=== PATIENT | male | born 1940 | race African-American/Black ===

== ENCOUNTER 2019-04-16 19:41 | Emergency (ER) | payer OTHER, MEDICAID ==
[~2019-04-16] VITALS: Ht 165.1 cm; Wt 59.0 kg
--- NOTE | 2019-04-16 19:48 | NUR ---
PT CAME TO ER VIA RA102 FOR SHORTNESS OF BREATH, POSSIBLE ASPIRATION, AND COUGHING OF BLOOD. PATIENT STATES THAT HE HAD "ATE POTATOES AND IT WENT DOWN THE WRONG PIPE". PATIENT HAS CRACKLES HEARD UPON AUSCULTATION BILATERALLY ON BOTH LOBES, CAN BE HEARD MORE PROMINENTLY ON THE RIGHT. AAOX4. NO SOB. 100% 02 ON ROOM AIR. SUCTION READY AT BEDSIDE. CONNECTED TO MONITOR.
[2019-04-16] MEDS ORDERED: ONDANSETRON HCL/PF - ER 4 MG/2 ML VIAL IV ONE (20:00)
[2019-04-16 20:17] LABS: BASOPHILS % (AUTO) 0.8 % (0.0-2.0); EOSINOPHILS % (AUTO) 1.5 % (0.0-6.0); HEMATOCRIT 38 % (39-51); HEMOGLOBIN 11.9 g/dL (13.5-17.5); LYMPHOCYTES # (AUTO) 1.4 /CMM (0.8-4.8); LYMPHOCYTES % (AUTO) 21.8 % (20.0-44.0); MEAN CORPUSCULAR HGB CONC 32 g/dl (31.0-36.0); MEAN CORPUSCULAR VOLUME 89 fL (80-96); MONOCYTES # (AUTO) 0.5 /CMM (0.1-1.30); MONOCYTES % (AUTO) 8.5 % (2.0-12.0); NEUTROPHILS # (AUTO) 4.2 /CMM (1.8-8.9); NEUTROPHILS % (AUTO) 67.4 % (43.0-81.0); PLATELET COUNT (AUTO) 176 /CMM (150-450); RED BLOOD CELL COUNT(AUTO) 4.21 MIL/uL (4.5-6.0); WHITE BLOOD COUNT (AUTO) 6.2 K/uL (4.3-11.0)
--- NOTE | 2019-04-16 20:21 | NUR ---
BLOOD DRAWN AND SENT TO LAB
[2019-04-16 20:29] LABS: CALCIUM, SERUM 9.4 mg/dL (8.5-10.1); CARBON DIOXIDE 28 mmol/L (21-32); CHLORIDE 100 mmol/L (98-107); CREATININE 0.9 mg/dL (0.6-1.3); GLUCOSE 107 mg/dL (74-106); POTASSIUM 3.6 mmol/L (3.5-5.1); SODIUM SERUM 132 mmol/L (136-145); UREA NITROGEN, BLOOD 11 mg/dL (7-18)
[2019-04-16] MEDS ORDERED: LIDOCAINE 2% JEL UROJET 10 ML MM ONE ×2 (20:34→23:00)
[2019-04-16 20:35] LABS: ALANINE AMINOTRANSFERASE 15 U/L (12-78); ALBUMIN 3.1 g/dL (3.4-5.0); ALKALINE PHOSPHATASE 83 U/L (46-116); ASPARTATE AMINOTRANSFERASE 27 U/L (15-37); BILIRUBIN,DIRECT 0.1 mg/dL (0.0-0.2); BILIRUBIN,TOTAL 0.2 mg/dL (0.2-1.0)
--- NOTE | 2019-04-16 20:41 | NUR ---
OLD CARLOS REMOVED.
--- NOTE | 2019-04-16 20:45 | NUR ---
URINE COLLECTED AND SENT TO LAB
--- NOTE | 2019-04-16 20:45 | NUR ---
NEW 16 FR CARLOS CHANGED FOR PATIENT.
--- NOTE | 2019-04-16 20:50 | NUR ---
CARLOS CATH WAS NOT ADVANCING FOR PT'S PRIMARY NURSE. UROJET AND 16F COUDE CARLOS USED. DARK REDISH BROWN URINE OUTPUT NOTED. SM CLOT NOTED
[2019-04-16] MEDS ORDERED: ONDANSETRON HCL/PF 4 MG/2 ML VIAL ONE (20:52)
--- NOTE | 2019-04-16 21:02 | NUR ---
SPOKE WITH PATIENT'S SON, ALEJANDRA. CAN BE REACHED THROUGH [phone]
--- NOTE | 2019-04-16 21:09 | NUR ---
BEDPAN GIVEN TO PATIENT.
[2019-04-16 21:12] LABS: APPEARANCE,URINE Cloudy (CLEAR); BILIRUBIN,URINE LARGE (NEGATIVE); BLOOD, URINE Large Ery/uL (NEGATIVE); COLOR,URINE Brown (YELLOW); KETONES,URINE 15 (NEGATIVE); LEUKOCYTE ESTERASE ,URINE Large (NEGATIVE); NITRITE, URINE Positive (NEGATIVE); PH,URINE 5.5 (5.0-8.0); PROTEIN,URINE >=300 mg/dl (NEGATIVE); UGLUCOSE Negative (NEGATIVE)
--- NOTE | 2019-04-16 21:19 | NUR ---
REMOVED BED ACEVEDO, WATERY DIARRHEA, LIGHT BROWN.
[2019-04-16 21:25] LABS: RBC,URINE TOO NUMEROUS TO COUN /HPF (0-2)
[2019-04-16 21:26] LABS: BACTERIA,URINE 2+ /HPF (None Seen); SQUAMOUS EPITHELIAL CELL,UR Few /HPF (None Seen)
--- NOTE | 2019-04-16 21:35 | NUR ---
PATIENT SENT TO CT.
[2019-04-16] MEDS ORDERED: PIPERACILLIN /TAZOBACTAM 3.375 G VIAL IV ONE (21:59)
[2019-04-16] MEDS ORDERED: PIPERACILLIN /TAZOBACTAM 3.375 G in IV D5W 50 ML IV ONE (22:00)
[2019-04-16] MEDS ORDERED: IV NS 0.9% 1,000 ML BAG IV ONE (22:00)
[2019-04-16] MEDS ORDERED: METO-295 PO (22:19)
[2019-04-16] MEDS ORDERED: ONDA4TAB5 PO (22:19)
[2019-04-16] MEDS ORDERED: ROPI0.252 PO (22:19)
[2019-04-16] MEDS ORDERED: MYLANTA PO (22:19)
[2019-04-16] MEDS ORDERED: ARIP5TAB10 PO (22:19)
[2019-04-16] MEDS ORDERED: MILK OF MAGNESIA PO (22:19)
[2019-04-16] MEDS ORDERED: NA P133E RC (22:19)
[2019-04-16] MEDS ORDERED: SERT50TA PO (22:19)
[2019-04-16] MEDS ORDERED: TYL2T PO (22:19)
[2019-04-16] MEDS ORDERED: METR500T PO (22:19)
[2019-04-16] MEDS ORDERED: DULCOLAX PR (22:19)
[2019-04-16] MEDS ORDERED: DONE10TA11 PO (22:19)
[2019-04-16] MEDS ORDERED: SUCR1TAB31 PO (22:19)
[2019-04-16] MEDS ORDERED: MAGN400T8 PO (22:19)
[2019-04-16] MEDS ORDERED: CALC-494 PO (22:19)
[2019-04-16] MEDS ORDERED: TRAZ-182 PO (22:19)
[2019-04-16] MEDS ORDERED: OLAN5TAB6 PO (22:19)
[2019-04-16] MEDS ORDERED: LORA-259 PO (22:19)
[2019-04-16] MEDS ORDERED: LISI-607 PO (22:19)
[2019-04-16] MEDS ORDERED: ALLO100T PO (22:19)
[2019-04-16] MEDS ORDERED: METO25TA6 PO (22:19)
--- NOTE | 2019-04-16 22:45 | NUR ---
PT'S DIET NOTED IN PAPERWORK FROM THE FACILITY IS PUREE SHRUTHI
--- NOTE | 2019-04-16 22:47 | NUR ---
SPOKE W/ JAZZ DESK LIEUTENANT REGARDING ADMITTANCE STATUS OF PATIENT.
--- NOTE | 2019-04-16 22:56 | NUR ---
DR. ALVARADO SPEAKING TO [facility] VASCULAR SURGEON DR. BUSCH REGARDING PATIENT'S ADMISSION STATUS.
--- NOTE | 2019-04-16 22:56 | NUR ---
José Miguel raymond in ED - 04/16/[address] ALVARADO SPEAKING W/ DR. HOUGH, PROFESSOR OF [facility]OLOGETICS OF [facility].
--- NOTE | 2019-04-16 23:02 | NUR ---
PATIENT IS RETURNING TO [facility], JAZZ LAST PATTERN GRADER CALLING FOR TRANSPORT.
--- NOTE | 2019-04-16 23:04 | NUR ---
SPOKE TO PT'S , LISA, RE: UPDATE.
--- NOTE | 2019-04-16 23:41 | NUR ---
RECIEVED CALL FROM JAZZ RADIO MAINTAINER, PATIENT WILL BE GOING TO ROOM 23-A AT [facility], TRANSPORT TEAM IS [facility], ETA 40MINUTES.
--- NOTE | 2019-04-16 23:47 | NUR ---
PATIENT IS SLEEPING. EASILY AROUSABLE TO VERBAL AND TACTILE STIMULI. 02 SATURATION AT 99% ROOM AIR.
--- NOTE | 2019-04-17 00:03 | NUR ---
José Miguel ryamond in ED - 04/17/19 at 0014 by ABILIO REPORT GIVEN TO RICHELLE SAMUELS AT [facility] FOR KANIKA.
--- NOTE | 2019-04-17 00:03 | NUR ---
REPORT GIVEN TO IRCHELLE SAMUELS AT [facility] FOR [facility]A.
--- NOTE | 2019-04-17 00:15 | NUR ---
REPORT GIVEN TO [facility] FOR TRANSFER
[2019-04-17 00:17] VITALS: BP 123/82
[2019-04-22] MEDS ORDERED: HYDR-3972 PO (10:20)
[2019-04-22] MEDS ORDERED: HEPA50008 SQ (10:20)
[2019-04-22] MEDS ORDERED: CEFT1VIA15 IV (10:20)
[2019-04-22] MEDS ORDERED: METH4TAB3 PO (10:20)
== END 2019-04-17 00:17 ==
LOC: ER 19:42 → EDBD 19:42 → ER 04-17 00:17
DX: N30.00 Acute cystitis without hematuria (principal); E86.0 Dehydration; D64.9 Anemia, unspecified; I10 Essential (primary) hypertension; I48.91 Unspecified atrial fibrillation; J44.9 Chronic obstructive pulmonary disease, unspecified; N40.0 Benign prostatic hyperplasia without lower urinary tract symptoms; F32.9 Major depressive disorder, single episode, unspecified; F41.9 Anxiety disorder, unspecified; Z86.718 Personal history of other venous thrombosis and embolism
CPT/HCPCS: 36415; 51702; 71045; 74176; 80048; 80076; 81001; 83605; 84145; 84484; 85025; 85730; 87040 ×2; 87077; 87086; 87186; 93005; 96365; 96375; 99284; J2405; J2543; J3490; J7030; J7060; 81000-TC

== ENCOUNTER 2019-04-18 19:13 | Inpatient (IN) | payer MEDICARE, MEDICAID ==
[~2019-04-18] VITALS: Ht 172.7 cm; Wt 66.7 kg
[~2019-04-18 19:13] MED LIST: ALLO100T PO; ARIP5TAB10 PO; CALC-494 PO; DONE10TA11 PO; DULCOLAX PR; LISI-607 PO; LORA-259 PO; MAGN400T8 PO; METO-295 PO; METO25TA6 PO; METR500T PO; MILK OF MAGNESIA PO; MYLANTA PO; NA P133E RC; OLAN5TAB6 PO; ONDA4TAB5 PO; ROPI0.252 PO; SERT50TA PO; SUCR1TAB31 PO; TRAZ-182 PO; TYL2T PO
--- NOTE | 2019-04-18 19:15 | NUR ---
"[id number] SNF FOR SOB/O2 DESATURATION. ON BREATHING TREATMENT NEUROSCIENCE DIRECTOR NA" pt awake, alert, pt on monitor, piv established, md at bedside for eval
[2019-04-18] MEDS ORDERED: methylPREDNISolone SOD SUCC 125 MG/2ML VIAL ONE (19:25)
[2019-04-18 19:27] LABS: BASOPHILS # (AUTO) 0.1 /CMM (0.0-0.2); BASOPHILS % (AUTO) 0.9 % (0.0-2.0); EOSINOPHILS % (AUTO) 1.6 % (0.0-6.0); HEMATOCRIT 36 % (39-51); HEMOGLOBIN 11.6 g/dL (13.5-17.5); LYMPHOCYTES # (AUTO) 1.7 /CMM (0.8-4.8); LYMPHOCYTES % (AUTO) 29.8 % (20.0-44.0); MEAN CORPUSCULAR HGB CONC 33 g/dl (31.0-36.0); MEAN CORPUSCULAR VOLUME 89 fL (80-96); MONOCYTES # (AUTO) 0.5 /CMM (0.1-1.30); NEUTROPHILS # (AUTO) 3.3 /CMM (1.8-8.9); NEUTROPHILS % (AUTO) 58.7 % (43.0-81.0); PLATELET COUNT (AUTO) 196 /CMM (150-450); RED BLOOD CELL COUNT(AUTO) 4.05 MIL/uL (4.5-6.0); WHITE BLOOD COUNT (AUTO) 5.7 K/uL (4.3-11.0)
[2019-04-18] MEDS ORDERED: IPRATROPIUM NEB FS 0.5 MG/2.5 ML AMPUL.NEB NEB ONE (19:30)
[2019-04-18] MEDS ORDERED: methylPREDNISolone SOD SUCC 125 MG/2ML VIAL IV ONE (19:30)
[2019-04-18] MEDS ORDERED: ALBUTEROL FS 2.5 MG/3 ML VIAL.NEB NEB ONE (19:30)
[2019-04-18] MEDS ORDERED: ALBUTEROL FS 2.5 MG/3 ML VIAL.NEB ONE (19:35)
[2019-04-18] MEDS ORDERED: IPRATROPIUM NEB FS 0.5 MG/2.5 ML AMPUL.NEB ONE (19:36)
[2019-04-18 19:54] LABS: CALCIUM, SERUM 8.9 mg/dL (8.5-10.1); CARBON DIOXIDE 29 mmol/L (21-32); CHLORIDE 100 mmol/L (98-107); CREATININE 0.8 mg/dL (0.6-1.3); GLUCOSE 123 mg/dL (74-106); POTASSIUM 3.6 mmol/L (3.5-5.1); SODIUM SERUM 132 mmol/L (136-145); UREA NITROGEN, BLOOD 7 mg/dL (7-18)
[2019-04-18 19:58] LABS: ALANINE AMINOTRANSFERASE 14 U/L (12-78); ALBUMIN 3.1 g/dL (3.4-5.0); ALKALINE PHOSPHATASE 78 U/L (46-116); ASPARTATE AMINOTRANSFERASE 29 U/L (15-37); BILIRUBIN,DIRECT 0.1 mg/dL (0.0-0.2); BILIRUBIN,TOTAL 0.2 mg/dL (0.2-1.0)
[2019-04-18] MEDS ORDERED: VANCOMYCIN 1 GM in IV D5W 250 ML IV ONE (20:00)
[2019-04-18] MEDS ORDERED: IV NS 0.9% 1,000 ML BAG IV ONE (20:00)
[2019-04-18] MEDS ORDERED: PIPERACILLIN /TAZOBACTAM 3.375 G in IV D5W 50 ML IV ONE (20:00)
[2019-04-18 20:28] LABS: APPEARANCE,URINE Clear (CLEAR); BILIRUBIN,URINE Negative (NEGATIVE); BLOOD, URINE Moderate Ery/uL (NEGATIVE); COLOR,URINE Yellow (YELLOW); KETONES,URINE Negative (NEGATIVE); LEUKOCYTE ESTERASE ,URINE Small (NEGATIVE); NITRITE, URINE Negative (NEGATIVE); PH,URINE 5.5 (5.0-8.0); PROTEIN,URINE Negative (NEGATIVE); UGLUCOSE Negative (NEGATIVE); UROBILINOGEN,URINE 0.2 EU/dL (0.2)
[2019-04-18] MEDS ORDERED: LORAZEPAM INJ 2 MG/ML VIAL ONE (20:44)
--- NOTE | 2019-04-18 20:54 | NUR ---
RECIEVED BED 309-1
[2019-04-18 20:57] LABS: BACTERIA,URINE Few /HPF (None Seen); SQUAMOUS EPITHELIAL CELL,UR Few /HPF (None Seen)
[2019-04-18] MEDS ORDERED: LORAZEPAM INJ 2 MG/ML VIAL IV ONE (21:00)
--- NOTE | 2019-04-18 21:45 | NUR ---
TELE/RN NOTES RECEIVED PT. FROM ER VIA RADHA. PT. IS AWAKE, ALERT AND ORIENTED X2. BREATHING EVEN AND UNLABORED ON 4LPM O2 VIA NC. NO SOB, RESPIRATORY DISTRESS OR COMPLAINTS OF PAIN NOTED AT THIS TIME. PT. WITH RIGHT FOREARM 20 GAUGE IV SALINE LOCK PRESENT, PATENT AND INTACT. PT. WITH LEFT AC 18 GAUGE IV SALINE LOCK PRESENT, PATENT AND INTACT. ORIENTED PT. TO ROOM. PLACED EXTERNAL TOOL AND DIE ASSEMBLER ON PT. CURRENT RHYTHM = AFIB HR 76. BED LOCKED AND IN LOWEST POSITION, SIDE RAILS UP X3, BED ALARM ON, CALL LIGHT WITHIN REACH, WILL CONTINUE TO MONITOR.
[2019-04-18 22:00] VITALS: BP 115/63
--- NOTE | 2019-04-18 22:00 | NUR ---
report given to merritt pena for karel pt transported to 3rd floor
[2019-04-18] MEDS ORDERED: Z GUARD REMEDY 2 OZ OINT TP PRN (23:30)
[2019-04-18] MEDS ORDERED: ACETAMINOPHEN 325 MG TABLET PO PRN (23:30)
[2019-04-18] MEDS ORDERED: ZOLPIDEM TARTRATE 5 MG TABLET PO PRN (23:30)
[2019-04-18] MEDS ORDERED: HYDROCODONE/APAP 5/325MG 1 EACH TABLET PO PRN (23:30)
[2019-04-18] MEDS ORDERED: MAGNESIUM HYDROXIDE 30 ML UDC PO PRN (23:30)
[2019-04-18] MEDS: ALBUTEROL FS 2.5 MG/0.5 ML VIAL.NEB NEB SCH (23:57)
[2019-04-18] MEDS: IPRATROPIUM NEB FS 0.5 MG/2.5 ML AMPUL.NEB NEB SCH (23:57)
[2019-04-19] VITALS: BP 112/63
[2019-04-19] MEDS ORDERED: PIPERACILLIN /TAZOBACTAM 3.375 G in IV D5W 50 ML IV ONE ×2 (02:00→02:30)
[2019-04-19] MEDS ORDERED: PIPERACILLIN /TAZOBACTAM 3.375 G VIAL IV ONE (02:19)
[2019-04-19] MEDS: IPRATROPIUM NEB FS 0.5 MG/2.5 ML AMPUL.NEB NEB SCH ×6 (02:31→23:24)
[2019-04-19] MEDS: ALBUTEROL FS 2.5 MG/0.5 ML VIAL.NEB NEB SCH ×6 (02:31→23:24)
[2019-04-19 04:00] VITALS: BP 110/66
[2019-04-19 06:54] LABS: BASOPHILS % (AUTO) 0.4 % (0.0-2.0); HEMATOCRIT 33 % (39-51); HEMOGLOBIN 10.7 g/dL (13.5-17.5); LYMPHOCYTES # (AUTO) 0.3 /CMM (0.8-4.8); LYMPHOCYTES % (AUTO) 8.3 % (20.0-44.0); MEAN CORPUSCULAR HGB CONC 33 g/dl (31.0-36.0); MEAN CORPUSCULAR VOLUME 88 fL (80-96); MONOCYTES # (AUTO) 0.1 /CMM (0.1-1.30); NEUTROPHILS # (AUTO) 3.5 /CMM (1.8-8.9); NEUTROPHILS % (AUTO) 88.3 % (43.0-81.0); PLATELET COUNT (AUTO) 168 /CMM (150-450); RED BLOOD CELL COUNT(AUTO) 3.73 MIL/uL (4.5-6.0)
--- NOTE | 2019-04-19 06:55 | NUR ---
TELE/RN NOTES PT. IS LYING IN BED RESTING. BREATHING EVEN AND UNLABORED ON 3LPM O2 VIA NC. NO SOB, RESPIRATORY DISTRESS OR COMPLAINTS OF PAIN NOTED AT THIS TIME. PT. WITH RIGHT FOREARM 20 GAUGE IV SALINE LOCK PRESENT, PATENT AND INTACT. PT. WITH LEFT AC 18 GAUGE IV SALINE LOCK PRESENT, PATENT AND INTACT. ORIENTED PT. TO ROOM. PT. WITH EXTERNAL ECDIS N NAVIGATION OPERATOR PRESENT AND INTACT, PT. CURRENT RHYTHM = AFIB HR 58. ALL PT. NEEDS MET. BED LOCKED AND IN LOWEST POSITION, SIDE RAILS UP X3, BED ALARM ON, CALL LIGHT WITHIN REACH, WILL ENDORSE TO DAYSHIFT NURSE FOR CONTINUITY OF CARE.
[2019-04-19 06:56] LABS: CALCIUM, SERUM 8.3 mg/dL (8.5-10.1); CREATININE 0.7 mg/dL (0.6-1.3); PHOSPHORUS 3.2 mg/dL (2.5-4.9)
[2019-04-19 07:01] LABS: THYROID STIMULATING HORMONE 0.805 uIU/mL (0.358-3.74)
--- NOTE | 2019-04-19 07:20 | NUR ---
PHLEBOTOMIST ASSOCIATE NOTES PATIENT RESTING IN BED, RT AT BEDSIDE. SITTER ALSO AT BEDSIDE. PATIENT IN NO RESPIRATORY DISTRESS, NO C/O PAIN AT THIS TIME. PATIENT'S POWER PLANT ENGINEER ON READING AFIB AT 60S. SKIN WARM TO TOUCH. BOTH IV ACCESS SITES INTACT AND PATENT. BED ON LOWEST LOCKED POSITION, CALL LIGHT WITHIN REACH. WILL CONTINUE TO MONITOR.
[2019-04-19 07:26] LABS: MAGNESIUM 0.9 mg/dL (1.8-2.4)
[2019-04-19] MEDS ORDERED: FEE PK DOSING 1 MIN EA MC ONE (07:27)
[2019-04-19 08:00] VITALS: BP 105/60
[2019-04-19] MEDS: VANCOMYCIN 0.75 GM in IV D5W 250 ML IV SCH ×2 (08:27→20:38)
[2019-04-19] MEDS: PIPERACILLIN /TAZOBACTAM 3.375 G in IV D5W 100 ML IV SCH ×3 (08:27→23:42)
[2019-04-19] MEDS: methylPREDNISolone SOD SUCC 125 MG/2ML VIAL IV SCH ×3 (08:28→16:26)
[2019-04-19] MEDS ORDERED: FINA5TAB4 PO (09:06)
[2019-04-19] MEDS ORDERED: MAGN400O6 PO (09:06)
[2019-04-19] MEDS ORDERED: OLAN5TAB3 PO (09:06)
[2019-04-19] MEDS ORDERED: IPRA3AMP23 IH (09:06)
[2019-04-19] MEDS ORDERED: MAG355OR18 PO (09:06)
[2019-04-19] MEDS ORDERED: ENOX40DI SQ (09:06)
[2019-04-19] MEDS ORDERED: SENN8.8S12 PO (09:06)
[2019-04-19] MEDS ORDERED: ROPI0.252 PO (09:06)
[2019-04-19] MEDS ORDERED: BISA10SU11 RC (09:06)
[2019-04-19] MEDS ORDERED: TAMS-12 PO (09:06)
[2019-04-19] MEDS ORDERED: ASPI-992 PO (09:06)
[2019-04-19] MEDS ORDERED: FOLI5VIA2 PO (09:06)
[2019-04-19] MEDS ORDERED: SODIUM CHLORIDE PO (09:06)
[2019-04-19] MEDS ORDERED: DONE10TA11 PO (09:06)
[2019-04-19] MEDS ORDERED: PANT40TA2 PO (09:06)
[2019-04-19] MEDS: ONDANSETRON HCL/PF 4 MG/2 ML VIAL IVP PRN (09:40)
[2019-04-19] MEDS ORDERED: Magnesium 1GM/D5W 100ML PREMIX PIGGYBACK IV ONE ×2 (12:30)
[2019-04-19] MEDS: Magnesium 1GM/D5W 100ML PREMIX 100 ML IV SCH ×4 (12:37→15:45)
[2019-04-19 16:00] VITALS: BP 124/74
--- NOTE | 2019-04-19 17:20 | NUR ---
M/S RN NOTES PATIENT CONSTANTLY BURPING AND PUTS HIS FINGERS IN THE BACK OF HIS MOUTH. WHEN ASKED PATIENT WHY HE PUTS HIS FINGERS DOWN HIS THROAT HE STATES "I DON'T KNOW" PATIENT A/O X2. PROVIDE TEACHING, WILL CONTINUE TO MONITOR.
--- NOTE | 2019-04-19 18:35 | NUR ---
Spoke with patient, he resides at [facility] [phone]. He can ambulate with SBA, requires min-mod assist with adl's. Per SNF patient has a son King but he is self responsible. Patient plan to return to SNF when discharge. Addendum: 04/19/19 at 3329 by ESTHER KOCH RN Amended: Links added.
--- NOTE | 2019-04-19 18:48 | NUR ---
M/S RN NOTES PATIENT AWAKE, SITTER AT BEDSIDE. PATIENT'S FAMILY VISITED TODAY. PATIENT IN NO RESPIRATORY DISTRESS NOTED, NO C/O PAIN AT THIS TIME. IV ACCESS SITE ON THE RFA INTACT AND PATENT. SKIN WARM TO TOUCH. PATIENT'S NEEDS ATTENDED. BED ON LOWEST LOCKED POSITION, CALL LIGHT WITHIN REACH. WILL ENDORSE TO ONCOMING NURSE.
--- NOTE | 2019-04-19 19:10 | NUR ---
MS RN NOTE RECEIVED PT IN STABLE CONDITION A/O X2, NOTED WITH SITTER, NO SIGNS OF SOB OR DISTRESS, NO INDICATIONS OF PAIN OR N/V. IV IN RFA #[address] ALL CURRENT NEEDS ATTENDED TO. BED LOW, LOCKED, UPPER RAILS UP, AND CALL LIGHT WITHIN REACH. WILL CONT. TO MONITOR.
[2019-04-19 20:00] VITALS: BP 120/65
--- NOTE | 2019-04-19 21:45 | NUR ---
MS RN NOTE NOTIFIED KERZUMA OF PT PUTTING FINGERS DOWN THROAT AND INITIATING GAG REFLEX. BLEEDING NOTED. NEW ORDER FOR RESTRAINTS AND PSYCH EVAL. WILL CARRY OUT AND CONT. TO MONITOR PT.
--- NOTE | 2019-04-19 23:03 | NUR ---
MS RN NOTE NOTIFIED DR. LLOYD OF PT AGITATION. NEW ORDER FOR ATIVAN IV. WILL CARRY ORDER OUT AND CONT. TO MONITOR. PT.
[2019-04-19] MEDS: LORAZEPAM INJ 2 MG/ML VIAL IV PRN (23:20)
--- NOTE | 2019-04-19 23:20 | NUR ---
MS RN NOTE PT NOTED TO BE ANXIOUS, PRN ATIVAN 1 MG IV GIVEN. WILL CONT. TO MONITOR.
[2019-04-20] MEDS: IPRATROPIUM NEB FS 0.5 MG/2.5 ML AMPUL.NEB NEB SCH ×6 (03:27→22:46)
[2019-04-20] MEDS: ALBUTEROL FS 2.5 MG/0.5 ML VIAL.NEB NEB SCH ×6 (03:27→22:46)
[2019-04-20] MEDS: LORAZEPAM INJ 2 MG/ML VIAL IV PRN ×2 (04:38→09:17)
--- NOTE | 2019-04-20 04:38 | NUR ---
MS RN NOTE PT. AWAKE, AGITATED AND YELLING AT STAFF. PRN ATIVAN 1MG IV GIVEN. WILL CONT. TO MONITOR.
--- NOTE | 2019-04-20 06:03 | NUR ---
MS RN NOTE PT REMAINS IN STABLE CONDITION A/O X2, NOTED WITH SOFT JACOB WRIST RESTRAINTS, NO SIGNS OF SOB OR DISTRESS, NO INDICATIONS OF PAIN OR N/V. IV IN BOBBI #[address] ALL CURRENT NEEDS ATTENDED TO. BED LOW, LOCKED, UPPER RAILS UP, AND CALL LIGHT WITHIN REACH. WILL CONT. TO MONITOR AND ENDORSE TO NEXT SHIFT FOR KANIKA.
[2019-04-20 07:38] LABS: CALCIUM, SERUM 8.9 mg/dL (8.5-10.1); CREATININE 0.8 mg/dL (0.6-1.3); POTASSIUM 4.1 mmol/L (3.5-5.1)
[2019-04-20 07:52] VITALS: BP 142/87
[2019-04-20 08:00] VITALS: BP 142/87
--- NOTE | 2019-04-20 08:00 | NUR ---
rn notes RECEIVED PATIENT IN THE ROOM A/O X1/2ON O2 2L NC. PATIENT HAS NO ACUTE RESPIRATORY DISTRESS, UNLABORED BREATHING. V/S STABLE PATIENT WAS REFUSED PAIN. PATIENT ON RESTRAIN BECAUSE OF TRYING TO PUT HAND IN THE DEEP THTOT AND STARTED TO GAG. PATIENT STATE " SOMETHING GET STOCK MY THROAT". BUT PATIENT EAT AND DRINK NO OBSTRUCTION. TOLERATED BREAKFAST 100 %. AND KEEP ASKING FOOD. KITCHEN AWARE OF SEND EXTRA FOOD. ADMINISTERED SCHEDULED MEDICATION CRUSHED AND MIXED WITH THE APPLE SAUCE. ASSIST PATIENT TURN AND REPOSTION Q 2 HR. INFUSING ZOSYN 25ML/HR ON RIGHT WRIST, ALSO INFUSING VANCOMYCIN 250 MG/ML ON RIGHT UA INTACT, NEEDS ATTENDED AND ANTICIPATE. PATIENT INCOMNNTINE NT USING DIAPER. SAFETY PRECAUTION MAINTAINED ALL THE TIME.
[2019-04-20] MEDS: PIPERACILLIN /TAZOBACTAM 3.375 G in IV D5W 100 ML IV SCH ×2 (08:26→16:42)
[2019-04-20] MEDS: methylPREDNISolone SOD SUCC 125 MG/2ML VIAL IV SCH ×3 (08:27→16:45)
--- NOTE | 2019-04-20 09:17 | NUR ---
RN NOTES ADMINISTERED ATIVAN 1 MG /ML IV PUSH FOR ANXIETY, YELLING, BP-142/87, P-60. PATIENT ON WRIST RESTRAIN, FOR FALL PRECAUTION , PATIENT TRYING TO GAG SELF PUTTING FINGER TO THE DEEP TROTH.
[2019-04-20] MEDS: VANCOMYCIN 0.75 GM in IV D5W 250 ML IV SCH (09:20)
[2019-04-20] MEDS ORDERED: OLANZAPINE 5 MG TABLET PO PRN (10:00)
--- NOTE | 2019-04-20 11:00 | NUR ---
RN NOTES PATIENT RESTING IN THE BED , MEDICATION WERE ADMINISTERED APRYL ANXIETY EFFECTIVE. CONTINUED MONITORING.
[2019-04-20] MEDS: TAMSULOSIN 0.4 MG CAP.SR.24H PO SCH (13:46)
[2019-04-20] MEDS: SERTRALINE HCL 50 MG TABLET PO SCH (13:46)
[2019-04-20] MEDS: ARIPIPRAZOLE 5 MG TABLET PO SCH (13:46)
[2019-04-20] MEDS: ASPIRIN 325 MG TABLET PO SCH (13:46)
[2019-04-20] MEDS: HEPARIN SODIUM, PORCINE 5000 UNITS/1 ML VIAL SQ SCH ×2 (13:47→21:21)
[2019-04-20] MEDS: PANTOPRAZOLE 40 MG TABLET.DR PO SCH (13:52)
[2019-04-20] MEDS: METOPROLOL TARTRATE 25 MG TABLET PO SCH (13:53)
[2019-04-20 16:00] VITALS: BP 132/83
[2019-04-20] MEDS: SODIUM CHLORIDE 1000 MG TABLET PO SCH (16:45)
--- NOTE | 2019-04-20 18:30 | NUR ---
RN NOTES PATIENT STABLE TOLERATED FOOD 100%, V/S STABLE, ADMINISTERED SCHEDULED MEDICATION. INFUSING RIGHT WRIST ZOSYN 25/ML HR ON EXTENDED DOSE. ASSIST TURN AND REPOSTION Q 2 HR. CHECKED CIRCULATION ON BILATERAL HANDS, CAPILLARY RETURN LESS THAN 3 SEC. CALL LIGHT WITHIN TO REACH, PATIENT EAT DINNER WITH HELP OF INSPECTOR GLASS OR MIRROR, NO ASPIRATION PRECAUTION, CALL LIGHT WITHIN TO REACH. ENDORSED ONCOMING NURSE FOLLOW PLAN OF CARE.
--- NOTE | 2019-04-20 19:30 | NUR ---
ms sherly initial notes received report from am nurse Soumya, and checked the pt , he's awake and watching TV at time. heplock patent and intact. no signs of any acute distress noted. pt still with soft wrist restrain, skin warm and pulse present. kept him warm and comfortable at all times. bed in low and lock in position with side rails x2 up . will continue monitoring.
[2019-04-20 20:00] VITALS: BP 113/71
[2019-04-20] MEDS ORDERED: ENOXAPARIN SODIUM 40 MG/0.4 ML DISP.SYRIN SQ SCH (21:00)
[2019-04-20] MEDS: VANCOMYCIN 1 GM in IV D5W 250 ML IV SCH (21:11)
[2019-04-20] MEDS: ropiniROLE 0.5 MG TABLET PO SCH (21:19)
[2019-04-20] MEDS: TRAZODONE 50 MG TABLET PO SCH (21:19)
[2019-04-20] MEDS: FINASTERIDE (5 MG) 5 MG TABLET PO SCH (21:19)
[2019-04-20] MEDS: CALCIUM CARBONATE 500 MG TAB.CHEW PO SCH (21:19)
[2019-04-20] MEDS: DONEPEZIL 5 MG TABLET PO SCH (21:19)
--- NOTE | 2019-04-21 | NUR ---
ms sherly notes pt sleeping comfortably in bed with no signs of any acute distress noted. all due meds given and stable judy the night. still no soft restrain at this time. pt calmed and quiet after snacks given and bed bath done. kept him warm and comfortable at all times. bed alarm set for safety. endorse to am nurse for continuity of care. place call light at reach.
[2019-04-21] MEDS: PIPERACILLIN /TAZOBACTAM 3.375 G in IV D5W 100 ML IV SCH ×2 (00:15→08:09)
[2019-04-21] MEDS: ALBUTEROL FS 2.5 MG/0.5 ML VIAL.NEB NEB SCH ×6 (04:21→22:35)
[2019-04-21] MEDS: IPRATROPIUM NEB FS 0.5 MG/2.5 ML AMPUL.NEB NEB SCH ×6 (04:21→22:35)
--- NOTE | 2019-04-21 07:29 | NUR ---
ms heart surgeon closing notes endorse to am nurse for continuity of care. pt remain sleeping.
--- NOTE | 2019-04-21 07:42 | NUR ---
MS RN NOTES PATIENT RECEIVED RESTING INSIDE ROOM. SLEEPING, AROUSABLE THROUGH VERBAL AND TACTILE STIMULI. NO ACUTE DISTRESS. NO C/O PAIN OR DISCOMFORT. PATIENT CALM AND RELAXED AT THIS TIME. SAFETY PRECAUTIONS IN PLACE. WILL CONTINUE TO MONITOR. BED LOCKED AND IN LOW POSITION. BILATERAL UPPER SIDE RAILS UP AND LOCKED. CALL LIGHT WITHIN EASY REACH
[2019-04-21 08:00] VITALS: BP 115/78
[2019-04-21] MEDS: ARIPIPRAZOLE 5 MG TABLET PO SCH (08:10)
[2019-04-21] MEDS: SODIUM CHLORIDE 1000 MG TABLET PO SCH ×2 (08:10→16:12)
[2019-04-21] MEDS: PANTOPRAZOLE 40 MG TABLET.DR PO SCH (08:11)
[2019-04-21] MEDS: METOPROLOL TARTRATE 25 MG TABLET PO SCH (08:11)
[2019-04-21] MEDS: TAMSULOSIN 0.4 MG CAP.SR.24H PO SCH (08:11)
[2019-04-21] MEDS: CALCIUM CARBONATE 500 MG TAB.CHEW PO SCH ×2 (08:11→20:49)
[2019-04-21] MEDS: ASPIRIN 325 MG TABLET PO SCH (08:11)
[2019-04-21] MEDS: methylPREDNISolone SOD SUCC 125 MG/2ML VIAL IV SCH ×2 (08:11→16:11)
[2019-04-21] MEDS: HEPARIN SODIUM, PORCINE 5000 UNITS/1 ML VIAL SQ SCH ×2 (08:12→20:54)
[2019-04-21] MEDS: SERTRALINE HCL 50 MG TABLET PO SCH (08:13)
[2019-04-21] MEDS: ALLOPURINOL 100 MG TABLET PO SCH (08:16)
[2019-04-21] MEDS: LISINOPRIL (5MG) 5 MG TABLET PO SCH (08:16)
[2019-04-21] MEDS: MAGNESIUM OXIDE 400 MG TABLET PO SCH (08:16)
[2019-04-21 08:49] LABS: CALCIUM, SERUM 9.6 mg/dL (8.5-10.1); CREATININE 0.8 mg/dL (0.6-1.3); POTASSIUM 4.2 mmol/L (3.5-5.1)
[2019-04-21] MEDS: VANCOMYCIN 1 GM in IV D5W 250 ML IV SCH (09:12)
[2019-04-21] MEDS: MAG HYDROX/AL HYDROX/SIMETH 30 ML UDC PO PRN (09:12)
[2019-04-21] MEDS ORDERED: methylPREDNISolone SOD SUCC 125 MG/2ML VIAL IV SCH (10:00)
--- NOTE | 2019-04-21 14:15 | NUR ---
MS RN NOTES MAGNESIUM LEVEL 1.3. PATIENT ON MAG OXIDE PO ROUTINE. PHARMACY AND DR CARRASCO AWARE. NO NEW ORDERS RECEIVED AT THIS TIME. WILL CONTINUE TO MONITOR
--- NOTE | 2019-04-21 14:32 | NUR ---
MS RN NOTES PATIENT ENCOURAGED TO AMBULATE BUT PATIENT DECLINED AND STATED, "I DONT FEEL LIKE IT RIGHT NOW". VERBALIZED HE JUST WANTS TO STAY ON BED. WILL CONTINUE TO MONITOR
[2019-04-21 16:00] VITALS: BP 118/59
--- NOTE | 2019-04-21 16:21 | NUR ---
MS RN NOTES PATIENT AGREED TO AMBULATE HALLWAY. ABLE TO UTILIZE FWW WHILE AMBULATING UNDER SUPERVISION. AMBULATES WITH STEADY GAIT. PATIENT AMBULATED AROUND THE UNIT X 1 THEN WENT BACK TO ROOM. NO ACUTE DISTRESS NOTED. WILL CONTINUE TO MONITOR
--- NOTE | 2019-04-21 18:39 | NUR ---
MS RN NOTES PATIENT RESTING INSIDE ROOM. A/O X 4. NO ACUTE DISTRESS. NO CHANGES IN LOC NOTED. NO ACUTE DISTRESS. DENIES ANY PAIN OR DISCOMFORT. PATIENT KEPT CLEAN, DRY AND COMFORTABLE. PROVIDED WITH CALM, SAFE, HAZARD-FREE ENVIRONMENT. WILL ENDORSE TO INCOMING SHIFT FOR KANIKA. BED LOCKED AND IN LOW POSITION. BILATERAL UPPER SDIE RAILS UP AND LOCKED. CALL LIGHT WITHIN EASY REACH
--- NOTE | 2019-04-21 19:18 | NUR ---
RN OPENING NOTES RECEIVED PATIENT IN BED AWAKE, RESTING. A/O X 4. FAMILY AT BED SIDE. RESPIRATIONS EVEN AND UNLABORED WITH EQUAL RISE AND FALL OF CHEST. IV SITES INTACT. PATIENT DENIES ANY PAIN OR DISCOMFORT. ALL NEEDS ATTENDED AT THIS TIME. SAFETY PRECAUTIONS IMPLEMENTED; CALL LIGHT WITHIN REACH, BED LOWEST POSITION, BED LOCKED, BILATERAL UPPER SIDE RAILS UP AND LOCKED. WILL CONTINUE TO MONITOR PATIENT.
[2019-04-21 20:00] VITALS: BP 114/66
[2019-04-21 20:03] VITALS: BP 114/66
[2019-04-21] MEDS: ropiniROLE 0.5 MG TABLET PO SCH (21:45)
[2019-04-21] MEDS: FINASTERIDE (5 MG) 5 MG TABLET PO SCH (21:45)
[2019-04-21] MEDS: DONEPEZIL 5 MG TABLET PO SCH (21:45)
[2019-04-21] MEDS: TRAZODONE 50 MG TABLET PO SCH (21:46)
[2019-04-22] MEDS: IPRATROPIUM NEB FS 0.5 MG/2.5 ML AMPUL.NEB NEB SCH ×4 (03:04→14:34)
[2019-04-22] MEDS: ALBUTEROL FS 2.5 MG/0.5 ML VIAL.NEB NEB SCH ×4 (03:04→14:34)
--- NOTE | 2019-04-22 06:09 | NUR ---
RN CLOSING NOTES PATIENT IN BED SLEEPING COMFORTABLY, EASILY AROUSABLE TO VOICE. RESPIRATIONS EVEN AND UNLABORED WITH EQUAL RISE AND FALL OF CHEST. IV SITES REMAIN INTACT. NO SIGNS OF FACIAL GRIMACING INDICATING PAIN OR DISCOMFORT AT THIS TIME. ALL DUE MEDS GIVEN AND STABLE THROUGHOUT THE SHIFT. ALL NEEDS ATTENDED AT THIS TIME. SAFETY PRECAUTIONS IMPLEMENTED; CALL LIGHT WITHIN REACH, BED LOWEST POSITION, BED LOCKED, BILATERAL UPPER SIDE RAILS UP AND LOCKED. WILL CONTINUE TO MONITOR PATIENT AND THEN WILL ENDORSE TO DAYSHIFT NURSE FOR CONTINUITY OF CARE.
--- NOTE | 2019-04-22 07:37 | NUR ---
MS RN NOTES PATIENT RECEIVED RESTING INSIDE ROOM, SLEEPING, EASILY AROUSABLE THROUGH VERBAL AND TACTILE STIMULI. BREATHING EVEN AND UNLABORED, DENIES ANY PAIN OR DISCOMFORT. PATIENT CALM AND RELAXED. SAFETY PRECAUTIONS IN PLACE. WILL CONTINUE TO MONITOR. BED LOCKED AND IN LOW POSITION. BILATERAL UPPER SIDE RAILS UP AND LOCKED. CALL LIGHT WITHIN EASY REACH
[2019-04-22 08:00] VITALS: BP 121/73
[2019-04-22] MEDS: SODIUM CHLORIDE 1000 MG TABLET PO SCH (08:03)
[2019-04-22] MEDS: TAMSULOSIN 0.4 MG CAP.SR.24H PO SCH (08:03)
[2019-04-22] MEDS: PANTOPRAZOLE 40 MG TABLET.DR PO SCH (08:03)
[2019-04-22] MEDS: methylPREDNISolone SOD SUCC 125 MG/2ML VIAL IV SCH (08:03)
[2019-04-22] MEDS: CALCIUM CARBONATE 500 MG TAB.CHEW PO SCH (08:03)
[2019-04-22] MEDS: LISINOPRIL (5MG) 5 MG TABLET PO SCH (08:03)
[2019-04-22] MEDS: ASPIRIN 325 MG TABLET PO SCH (08:03)
[2019-04-22 08:04] VITALS: BP 121/73
[2019-04-22] MEDS: ALLOPURINOL 100 MG TABLET PO SCH (08:04)
[2019-04-22] MEDS: ARIPIPRAZOLE 5 MG TABLET PO SCH (08:04)
[2019-04-22] MEDS: METOPROLOL TARTRATE 25 MG TABLET PO SCH (08:04)
[2019-04-22] MEDS: MAGNESIUM OXIDE 400 MG TABLET PO SCH (08:04)
[2019-04-22] MEDS: SERTRALINE HCL 50 MG TABLET PO SCH (08:04)
[2019-04-22] MEDS: HEPARIN SODIUM, PORCINE 5000 UNITS/1 ML VIAL SQ SCH (08:05)
--- NOTE | 2019-04-22 08:40 | NUR ---
MS RN NOTES PATIENT REFUSED AM LAB BLOOD DRAW. RISKS AND BENEFITS EXPLAINED BUT TO NO AVAIL, PATIENT STRONGLY REFUSED. WILL CONTINUE BRANDON MONITOR
[2019-04-22] MEDS ORDERED: CEFTRIAXONE 1 G in IV D5W 50 ML IV SCH (09:00)
[2019-04-22] MEDS ORDERED: HYDR-3972 PO (10:20)
[2019-04-22] MEDS ORDERED: CEFT1VIA15 IV (10:20)
[2019-04-22] MEDS ORDERED: HEPA50008 SQ (10:20)
[2019-04-22] MEDS ORDERED: METH4TAB3 PO (10:20)
[2019-04-22] MEDS ORDERED: methylPREDNISolone SOD SUCC 125 MG/2ML VIAL IV SCH (10:30)
--- NOTE | 2019-04-22 10:59 | NUR ---
MS RN NOTES WITH NEW ORDER FROM MARI LARSON ADMINISTRATIVE COURT JUSTICE FOR DISCHARGE, PATIENT WITH PLAN TO DC TO [facility]. VERIFIED DC MEDS WITH MARI LARSON NP. TO CONTINUE HEPARIN ORDERED, AND STOP LOVENOX. ALSO WITH ORDERS TO START MEDROL DOSEPAK DIRECTED AT [facility]. NOTED AND CARRIED OUT. WILL RELAY TO RECEIVING RN AT [facility]. WILL CONTINUE TO MONITOR
--- NOTE | 2019-04-22 11:23 | NUR ---
MS RN NOTES PLACED CALL TO [facility] ([phone]), RN UNAVAILABLE AT THIS TIME PER KIRK ANIMAL BREEDER. WILL CALL BACK TO FOLLOW-UP
--- NOTE | 2019-04-22 12:17 | NUR ---
MS RN NOTES PLACED CALL TO [facility] ([phone]) AND GAVE REPORT TO SAVANNA SAMUELS
[2019-04-22] MEDS: MAG HYDROX/AL HYDROX/SIMETH 30 ML UDC PO PRN (12:55)
[2019-04-22] MEDS: ONDANSETRON HCL/PF 4 MG/2 ML VIAL IVP PRN (15:33)
[2019-04-22] MEDS: LORAZEPAM INJ 2 MG/ML VIAL IV PRN (15:50)
--- NOTE | 2019-04-22 16:44 | NUR ---
MS RN NOTES PATIENT FOR DISCHARGE TODAY, TO TRANSFER TO [facility]. DISCHARGE INSTRUCTIONS AND EDUCATION PROVIDED TO PATIENT AND VERBALIZED UNDERSTANDING. VERIFIED BELONGINGS WITH PATIENT, NO REPORT OF MISSING INVENTORY. NO NEW SKIN BREAKDOWN ON DISCHARGE. PATIENT LEFT UNIT VIA GURNEY WITH EMT TRANSPORTATION. MD AWARE OF DISCHARGE
[2019-04-23] MEDS ORDERED: methylPREDNISolone SOD SUCC 40 MG/ML VIAL IV SCH (09:00)
== END 2019-04-22 16:15 | DRG 189 ==
LOC: ER 19:13 → TELE 21:27 → MED 04-19 08:44
PROVIDERS: ADMIT Student in an Organized Health Care Education/Training Program; ATTEND Registered Nurse
DX: J96.01 Acute respiratory failure with hypoxia (principal); G93.41 Metabolic encephalopathy; J44.1 Chronic obstructive pulmonary disease with (acute) exacerbation; N39.0 Urinary tract infection, site not specified; E44.1 Mild protein-calorie malnutrition; D68.59 Other primary thrombophilia; E87.1 Hypo-osmolality and hyponatremia; I10 Essential (primary) hypertension; E78.5 Hyperlipidemia, unspecified; I48.91 Unspecified atrial fibrillation; F29 Unspecified psychosis not due to a substance or known physiological condition; F03.90 Unspecified dementia, unspecified severity, without behavioral disturbance, psychotic disturbance, mood disturbance, and anxiety; G25.81 Restless legs syndrome; N40.0 Benign prostatic hyperplasia without lower urinary tract symptoms; M10.9 Gout, unspecified; Z68.22 Body mass index [BMI] 22.0-22.9, adult; B96.20 Unspecified Escherichia coli [E. coli] as the cause of diseases classified elsewhere; D63.8 Anemia in other chronic diseases classified elsewhere; F32.9 Major depressive disorder, single episode, unspecified; E86.9 Volume depletion, unspecified
CPT/HCPCS: 36415; 71045-TC; 80048-TC; 80061-TC; 80076-TC; 80202-TC; 81000-TC; 83605-TC; 83735-TC; 84100-TC; 84443-TC; 84484-TC; 85025-TC; 85730-TC; 87040-TC; 87081-TC; 87086-TC; 87186-TC; 92611-TC; 94799-TC; 97116-TC; 97530-TC; G0378; J0696; J1644; J2060; J2405; J2543; J2930; J3370; J3475; J7050; J7060